=== PATIENT | male | born 1985 | race Hispanic/Latino ===

== ENCOUNTER 2023-06-12 09:51 | Emergency (ER) | payer OTHER, SELFPAY ==
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
[2023-06-12 09:49] VITALS: BP 124/87; PULSE 70; RESP 20; TEMP 36.8; O2SAT 97
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
[2023-06-12] MEDS: ACETAMINOPHEN 500 MG TABLET 1000 MG PO (10:24)
[2023-06-12 11:31] VITALS: BP 105/62; PULSE 66; RESP 18; O2SAT 98
== END 2023-06-12 11:33 | disposition home or self-care (01) ==
PROVIDERS: Emergency Provider Physician Assistant; PCP Registered Nurse
DX: S09.90XA Unspecified injury of head, initial encounter (principal); S16.1XXA Strain of muscle, fascia and tendon at neck level, initial encounter; V43.52XA Car driver injured in collision with other type car in traffic accident, initial encounter; M47.812 Spondylosis without myelopathy or radiculopathy, cervical region
CPT/HCPCS: 70450; 72125; 99284; A9270; L0140